=== PATIENT | female | born 1990 | race Hispanic/Latino ===

== ENCOUNTER 2021-10-13 00:17 | Day surgery (SDC) | payer OTHER, SELFPAY ==
[2021-10-13] VITALS (19 sets, daily range): BP systolic 102–124; BP diastolic 49–75; PULSE 77–106; RESP 16–22; TEMP 35.5–36.8; O2SAT 96–100; BMI 32.1
--- NOTE | ~2021-10-13 | CT_ITS ---
EXAMINATION: CT abdomen pelvis w con DATE: 10/13/2021 01:20 INDICATION: TECHNIQUE: Computed tomography (CT) of the abdomen and pelvis was performed with 100 cc Omnipaque 350 intravenous contrast. The dose-length product was 858.28 mGy-cm. Automated exposure control and iter ative reconstruction technique were employed. COMPARISON: None. FINDINGS: Lung bases unremarkable. No significant pleural or pericardial effusion. Heart size normal. The liver, spleen, pancreas, adrenal glands and kidneys are unremarkable. Small fat-containing umbil ical hernia. There is a thickened enhancing appendix measuring up to 9 mm transversely with surroundi ng inflammation and small appendicoliths, consistent with acute uncomplicated appendicitis. No eviden ce for perforation or abscess. Small corpus luteal cyst of the left ovary measuring 2.2 cm. No free a ir or free fluid. The liver, spleen, pancreas, adrenal glands and kidneys are unremarkable. Gallbladder is present. IMPRESSION: 1. Acute uncomplicated appendicitis. Reviewed, dictated and finalized at location A.
--- NOTE | 2021-10-13 00:34 | ED.ABDPAIN ---
HPI - Abdominal Pain General Chief Complaint: Abdominal Pain Stated Complaint: right upper quadrant pain Time Seen by Provider: 10/13/21 00:26 Source: patient Mode of arrival: ambulatory Limitations: no limitations History of Present Illness HPI narrative: 30-year-old female presents today with complaints of 2 days of abdominal pain, nausea, vomiting, and diarrhea. Patient denies fevers but does endorse chills and sweats. Patient denies cough, runny nose, urinary symptoms. Patient history of what she calls surgery to not have babies about 2 years ago. Patient with 2 children at home that have had a cough and runny nose but not symptoms similar to her. Patient able to keep some food and fluids down. Related Data Allergies Allergy/AdvReac Type Severity Reaction Status Date / Time No Known Allergies Allergy Verified 10/13/21 00:25 Review of Systems Review of Systems: CONSTITUTIONAL: Denies fever, chills, or sweats. EYES: Denies visual changes, redness, or discharge. ENT: Denies rhinorrhea, congestion, sore throat, or otalgia. CARDIOVASCULAR: Denies chest pain, palpitations, or edema. RESPIRATORY: Denies cough or dyspnea. GASTROINTESTINAL: abdominal pain, nausea, vomiting, and diarrhea. GENITOURINARY: Denies dysuria or hematuria. SKIN: Denies rash or itching. MUSCULOSKELETAL: Denies back pain, joint pain, or myalgia. NEUROLOGIC: Denies headache, numbness, dizziness, or weakness. PSYCHIATRIC: Denies anxiety or depression. Exam Narrative: GENERAL: Well-appearing, well-nourished, and in no acute distress. HEAD: Normocephalic, atraumatic. EYES: PERRLA and EOMI. ENT: Nares clear, no rhinorrhea or epistaxis. Mucous membranes moist. Oropharynx without tonsillar hypertrophy exudate or other lesions. Bilateral TMs pearly herbert nonbulging NECK: Supple. No adenopathy or masses. No carotid bruits or JVD CHEST: Clear to auscultation. No respiratory distress. No wheezes rales or rhonchi HEART: Tachycardic. No murmur heard. Normal peripheral pulses. ABDOMEN: Generalized tenderness. Soft, nondistended, normal active bowel sounds. EXTREMITIES: Normal range of motion. No edema. SKIN: Warm, dry, no rash. NEURO: No focal deficits. Alert and oriented x3. PSYCH: Normal mood and affect. Course Consultations Consultation #1: Dr. Austin consulted. In agreement with admission. Will be admitting physician to [facility] as observation for acute appendicitis. Date: 10/13/21 Time: 02:10 Vital Signs Vital signs: Vital Signs Temperature 36.3 C L 10/13/21 00:19 Pulse Rate 106 H 10/13/21 00:19 Respiratory Rate 16 10/13/21 00:19 Blood Pressure 116/70 10/13/21 00:19 Pulse Oximetry 100 10/13/21 00:19 Temperature 36.3 C L 10/13/21 00:19 Pulse Rate 106 H 10/13/21 00:19 Respiratory Rate 16 10/13/21 00:19 Blood Pressure 116/70 10/13/21 00:19 Pulse Oximetry 100 10/13/21 00:19 MDM - Abdominal Pain Differential Diagnosis Differential diagnosis: Likely abdominal pain, acute appendicitis, constipation, diverticulitis, gastroenteritis and small bowel obstruction Medical Records Attestation: I reviewed the patient's medical records. Lab Data Attestation: I reviewed the patient's lab results. Result diagrams: 10/13/21 00:34 10/13/21 00:34 Labs: Lab Results 10/13/21 10/13/21 10/13/21 Range/Units 00:34 00:34 00:38 WBC 14.6 H (4.5-10.0) K/mm3 RBC 4.90 (4.2-5.4) M/mm3 Hgb 13.9 (12.0-15.0) g/dL Hct 41.8 (37.0-47.0) % MCV 85.3 (80-100) fl MCH 28.4 (26-34) pg MCHC 33.3 (32-36) g/dl RDW 13.0 (11.5-14.5) % Plt Count 283 (150-375) k/mm3 MPV 9.7 (7.4-10.4) fl Immature Gran % (Auto) 0.4 (0-0.5) % Neut % (Auto) 73.1 (45.5-73.1) % Lymph % (Auto) 20.0 (18.3-44.2) % [place] % (Auto) 5.9 (2.6-8.5) % Eos % (Auto) 0.3 (0-4.4) % Baso % (Auto) 0.3 (0.2-1.2) % Lymph # (Auto) 2.91 (0.9-3.2) K/mm3 [place] # (Auto) 0.9 H (0.1
[2021-10-13] MEDS: SODIUM CHLORIDE 0.9% IV 1,000 ML 999 ML IV CONT (00:38)
[2021-10-13 00:43] LABS: Basophils Percent Auto 0.3 % (0.2-1.2); Eosinophils Percent Auto 0.3 % (0-4.4); Hematocrit 41.8 % (37.0-47.0); Hemoglobin 13.9 g/dL (12.0-15.0); Immature Granulocyte Absolute 0.06 K/mm3 (0.00-0.031); Immature Granulocyte Percent A 0.4 % (0-0.5); Lymphocytes Absolute Auto 2.91 K/mm3 (0.9-3.2); Mean Corpuscular HGB Conc 33.3 g/dl (32-36); Mean Corpuscular Hemoglobin 28.4 pg (26-34); Mean Corpuscular Volume 85.3 fl (80-100); Mean Platelet Volume 9.7 fl (7.4-10.4); Monocytes Absolute Auto 0.9 K/mm3 (0.1-0.6); Monocytes Percent Auto 5.9 % (2.6-8.5); Neutrophils Absolute Auto 10.6 K/mm3 (1.3-6.7); Neutrophils Percent Auto 73.1 % (45.5-73.1); Platelet Count Result 283 k/mm3 (150-375); White Blood Count 14.6 K/mm3 (4.5-10.0)
[2021-10-13 00:46] LABS: Add Urine Microscopic? YES; Appearance Urine Clear (Clear); Bacteria Urine Trace /hpf; Bilirubin Urine Negative (Negative); Blood Urine Negative (Negative); Color Urine Yellow (Yellow); Glucose Urine UA Negative (Negative); Ketones Urine Negative (Negative); Leukocyte Esterase Ur Trace LEU/UL (Negative); Mucus Urine Rare /lpf; Nitrate Urine Negative (Negative); Protein Urine Negative (Negative); RBC Urine 0-2 /hpf (0-2); Specific Grav Ur 1.013 (1.001-1.035); Squamous Epithelial Cell Urine Rare /hpf (Few); Urobilinogen Urine Negative mg/dL (<2.0)
[2021-10-13 00:53] LABS: Alanine Aminotransferase 26 U/L (4-35); Albumin Level 4.7 g/dL (3.5-5.1); Alkaline Phosphatase 60 U/L (38-126); Anion Gap 12 mmol/L (8-16); Aspartate Amino Transferase 29 U/L (14-36); Bilirubin,Total 1.3 mg/dL (0.2-1.3); Blood Urea Nitrogen 10 mg/dL (7-17); Calcium 9.7 mg/dL (8.4-10.2); Carbon Dioxide 24 mmol/L (22-30); Chloride 101 mmol/L (98-107); Estimated CRCL calculation 129 ml/min; Estimated Glomerular Filt Rate > 60; Glucose 151 mg/dL (65-110); Lipase 63 U/L (23-300); Potassium 3.7 mmol/L (3.4-5.0); Sodium 137 mmol/L (137-145)
[2021-10-13] MEDS: SODIUM CHLORIDE 0.9% IV 1,000 ML 150 ML IV CONT (02:01)
[2021-10-13] MEDS: MORPHINE SULFATE (*CRX) 2 MG/ML INJ IV PUSH (02:01)
[2021-10-13] MEDS: FAMOTIDINE 20 MG/2 ML VIAL IV PUSH (02:52)
[2021-10-13] MEDS: methylPREDNISolone SOD SUCC 125 MG VIAL IV PUSH (02:52)
[2021-10-13] MEDS: diphenhydrAMINE HCl INJ 50 MG/ML VIAL 25 MG IV PUSH (02:52)
--- NOTE | 2021-10-13 02:55 | PC.NURSE ---
Pt reports throat feeling tight, right eye swelling - per provider, pt is having an allergic reaction to Zosyn which has already infused. Medications ordered for reaction given IVP and allergy placed in record. Pt denies previous reaction or allergy to any medication. Pt on tele monitor w/ VSS. Given call light for any increasing distress or new symptoms.
[2021-10-13] MEDS: metroNIDAZOLE 500 MG/ISO 100ML 500 MG/100 ML BAG 100 MG IVPB ×2 (03:23→08:46)
--- NOTE | 2021-10-13 04:06 | ADMGEN ---
This patient, Vero Sharif, was admitted to [facility] Surg Room 327-01. Patient/family oriented to hospital policies and general routines including ID bracelet, bed and alarms, visiting hours, pain management, procedures, bathroom and other care routines, personal items, smoking policy, room service/diet, and visiting hours. Information on how to activate the Rapid Response Team has been discussed. Patient/Family are encouraged to report perceived risks to care and to ask questions if they do not understand what they are told or what they should do.
--- NOTE | 2021-10-13 07:20 | PM.IMHP ---
H&P: HPI History of Present Illness Date/Time: 10/13/21 07:20 this is a pleasant 30-year-old [place] female presented early today with complaints of 2 days of abdominal pain, nausea, vomiting, and diarrhea. Patient denies fevers but does endorse chills and sweats. Patient denies cough, runny nose, urinary symptoms. Patient has a history of what she calls surgery to not have babies about 2 years ago. ( ( there are tubal ligation clips in the pelvis on the CT scan consistent with this) Patient with 2 children at home that have had a cough and runny nose but not symptoms similar to her. Patient able to keep some food and fluids down. workup in the emergency room revealed somewhat elevated white count. She has some tenderness in the right lower quadrant on exam and a CT scan of the abdomen pelvis revealed a swollen appendix with surrounding inflammatory change in the fat no signs of perforation or abscess. Therefore, I have provided her with information regarding appendectomy and also treatment with antibiotics. Please see plan below. Chief Complaint: Right lower quadrant abdominal pain. Review of Systems Constitutional: Constitutional: Reports no additional constitutional complaints, Reports fatigue and Denies malaise Eyes: Eyes: Denies change in vision and Denies loss of vision ENT: Reports Normal hearing present, Denies change in voice, Denies dizziness, Denies hoarseness and Denies sore throat Cardiovascular: Cardiovascular: Denies chest pain, Denies leg edema and Denies dyspnea Comments: During her 1st when she was 15 years old someone out a small clinic in [place] told her that she may have a irregular heartbeat or a murmur. (I thought I heard 1 so doing an EKG prior to surgery. ) Respiratory: Respiratory: Denies cough, Denies dyspnea and Denies wheezing Gastrointestinal: Gastrointestinal: Denies hematochezia, Denies change in bowel habits and Denies heartburn Genitourinary: Genitourinary: Denies urinary frequency and Denies urinary incontinence Neurologic: Reports Normal hearing present, Denies confusion, Denies dizziness, Denies loss of vision, Denies memory loss and Denies seizure-like activity Psychiatric: Psychiatric: Denies confusion, Denies depression and Denies memory loss Endocrine: Endocrine: Denies cold intolerance and Reports fatigue Hematologic/Lymphatic: Hematologic/Lymphatic: Denies easy bleeding and Denies easy bruising Allergic/Immunologic: Allergic/Immunologic: Denies wheezing PMFSH Past Medical History Medical History (Updated 10/13/21 @ 10:46 by Wero Austin MD) Class 1 obesity without serious comorbidity with body mass index (BMI) of 32.0 to 32.9 in adult Premature ventricular contractions (PVCs) (VPCs) Surgical History Surgical History H/O tubal ligation Social History Social History Smoking status: Never smoker Alcohol intake: never Substance use: never Spiritual care concerns: No Meds Home Medications and Allergies Allergies Allergy/AdvReac Type Severity Reaction Status Date / Time Penicillins Allergy Severe facial Verified 10/13/21 02:45 edema, sob piperacillin [From Zosyn] Allergy Mild Swelling Verified 10/13/21 04:05 of Lip/Tongue/Throat tazobactam [From Zosyn] Allergy Mild Swelling Verified 10/13/21 04:05 of Lip/Tongue/Throat Vital Signs Vital Signs - 24 hr 10/13/21 00:19 10/13/21 02:17 10/13/21 02:57 Temperature 36.3 C L Pulse Rate 106 H 93 82 Respiratory Rate 16 18 17 Blood Pressure 116/70 111/67 109/64 Pulse Oximetry 100 99 99 10/13/21 04:07 10/13/21 04:33 Temperature 36.4 C L Pulse Rate 81 84 Respiratory Rate 22 H 18 Blood Pressure 102/61 111/61 Pulse Oximetry 100 100 Exam Const: General: cooperative, healthy appearing, comfortable, no acute distress, well developed, alert
--- NOTE | 2021-10-13 08:34 | ECG_ITS ---
Measurements Intervals [place] Rate: 87 P: 57 IL: 172 QRS: 112 QRSD: 120 T: 21 QT: 382 QTc: 460 Interpretive Statements SINUS RHYTHM WITH FREQUENT VENTRICULAR PREMATURE COMPLEXES RIGHT BUNDLE BRANCH BLOCK [120+ ms QRS DURATION, UPRIGHT V1, 40+ ms S IN I/aVL/V4/V5/V6] LEFT POSTERIOR FASCICULAR BLOCK [QRS AXIS > 109, INFERIOR Q] ABNORMAL ECG NO PREVIOUS ECG AVAILABLE FOR COMPARISON Electronically Signed On 10-13-2021 14:06:12 CDT by Bulmaro Walker M.D.
--- NOTE | 2021-10-13 12:31 | WPDHPUPDATE1 ---
History and Physical Update Update Date/Time: 10/13/21 12:31 History and Physical has been reviewed, including an updated exam of the patient. There are NO changes in the patient's condition. Risks, benefits, and alternatives have been discussed and questions answered. Patient agrees to proceed with procedure.
--- NOTE | 2021-10-13 12:50 | PC.NURSE ---
To OR via STRETCHER.
[2021-10-13] MEDS: LACTATED RINGERS 1,000 ML 30 ML IV CONT ×2 (13:00→15:28)
--- NOTE | 2021-10-13 13:45 | WPDANESEPPF ---
Anes - Initial Pre Proc Eval Procedure: Operation Date: 10/13/21 14:00 Proposed Procedures p Laparoscopic Appendectomy - Wero Austin MD Date/Time: 10/13/21 13:45 Surgeon: Wero Austin MD Pre Op Diagnosis: Acute Appendicitis Patient Data Age: 30 Gender: F Height: 1.68 m Weight: 90.4 kg Last Vital Signs Temp 36.0 C L 10/13/21 12:59 Pulse 99 10/13/21 12:59 Resp 18 10/13/21 12:59 BP 124/64 10/13/21 12:59 Pulse Ox 100 10/13/21 12:59 Allergies Allergy/AdvReac Type Severity Reaction Status Date / Time Penicillins Allergy Severe facial Verified 10/13/21 02:45 edema, sob piperacillin [From Zosyn] Allergy Mild Swelling Verified 10/13/21 04:05 of Lip/Tongue/Throat tazobactam [From Zosyn] Allergy Mild Swelling Verified 10/13/21 04:05 of Lip/Tongue/Throat Laboratory Tests 10/13/21 10/13/21 10/13/21 00:34 00:34 00:38 WBC 14.6 K/mm3 H K/mm3 (4.5-10.0) RBC 4.90 M/mm3 M/mm3 (4.2-5.4) Hgb 13.9 g/dL g/dL (12.0-15.0) Hct 41.8 % % (37.0-47.0) MCV 85.3 fl fl (80-100) MCH 28.4 pg pg (26-34) MCHC 33.3 g/dl g/dl (32-36) RDW 13.0 % % (11.5-14.5) Plt Count 283 k/mm3 k/mm3 (150-375) MPV 9.7 fl fl (7.4-10.4) Immature Gran % (Auto) 0.4 % % (0-0.5) Neut % (Auto) 73.1 % % (45.5-73.1) Lymph % (Auto) 20.0 % % (18.3-44.2) [place] % (Auto) 5.9 % % (2.6-8.5) Eos % (Auto) 0.3 % % (0-4.4) Baso % (Auto) 0.3 % % (0.2-1.2) Lymph # (Auto) 2.91 K/mm3 K/mm3 (0.9-3.2) [place] # (Auto) 0.9 K/mm3 H K/mm3 (0.1-0.6) Eos # (Auto) 0.0 K/mm3 K/mm3 (0-0.3) Baso # (Auto) 0.0 K/mm3 K/mm3 (0.0-0.1) Abs Immat Gran (auto) 0.06 K/mm3 H K/mm3 (0.00-0.031) Absolute Neuts (auto) 10.6 K/mm3 H K/mm3 (1.3-6.7) Absolute Nucleated RBC 0.0 K/mm3 K/mm3 (0.0-0.012) Nucleated RBC % 0.0 % % (0.0-0.2) Sodium 137 mmol/L mmol/L (137-145) Potassium 3.7 mmol/L mmol/L (3.4-5.0) Chloride 101 mmol/L mmol/L (98-107) Carbon Dioxide 24 mmol/L mmol/L (22-30) Anion Gap 12 mmol/L mmol/L (8-16) BUN 10 mg/dL mg/dL (7-17) Creatinine 0.60 mg/dL L mg/dL (0.7-1.0) Estim Creat Clear Calc 129 ml/min ml/min Estimated GFR > 60 (59 - ) Glucose 151 mg/dL H mg/dL (65-110) Calcium 9.7 mg/dL mg/dL (8.4-10.2) Total Bilirubin 1.3 mg/dL mg/dL (0.2-1.3) AST 29 U/L U/L (14-36) ALT 26 U/L U/L (4-35) Alkaline Phosphatase 60 U/L U/L (38-126) Total Protein 8.0 g/dL g/dL (6.3-8.2) Albumin 4.7 g/dL g/dL (3.5-5.1) Lipase 63 U/L U/L (23-300) Urine Color Yellow (Yellow) Urine Appearance Clear (Clear) Urine pH 5.0 (5.0-9.0) Ur Specific [place] 1.013 (1.001-1.035) Urine Protein Negative mg/dL mg/dL (Negative) Urine Glucose (UA) Negative mg/dL mg/dL (Negative) Urine Ketones Negative mg/dL mg/dL (Negative) Ur Blood (Man) Negative (Negative) Urine Nitrate Negative (Negative) Urine Bilirubin Negative (Negative) Urine Urobilinogen Negative mg/dL mg/dL (<2.0) Leukocyte Esterase Rfl Trace JULIO/UL H JULIO/UL (Negative) Urine RBC 0-2 /hpf /hpf (0-2) Urine WBC 4-6 /hpf H /hpf Ur Squamous Epith Cells Rare /hpf /hpf (Few) Urine Bacteria Trace /hpf /hpf Urine Mucus Rare /lpf /lpf Patient hx anesthesia problems: none Family hx anesthesia problems: none Results Review: All pre-operative results and documents have been reviewed as part of the pre-operative evaluation. PMF Past Medical
[2021-10-13] MEDS: KETOROLAC 30 MG/ML VIAL (*BKC) IV PUSH (15:03)
--- NOTE | 2021-10-13 15:32 | W.PM.PROC2 ---
Procedure Note - Detailed Date of Procedure 10/13/21 Pre-op Diagnosis 1. Acute uncomplicated Appendicitis 2. Small umbilical hernia Post-op Diagnosis Same Procedure Performed laparoscopic appendectomy Surgeon Wero Austin MD Resource Specialist Teacher Juan Manuel ROSA. OR [employer]orter Anesthesia General Indications Patient presented with abdominal pain with a CT scan showing acute uncomplicated appendicitis with hermilo appendiceal stranding. She had elevated white count. Findings Appendix was slightly swollen but no signs of perforation. There was 1 of the tubal clips hanging just by a small scar tissue which was grasped and removed at the same time as the appendix. There were still several tubal clips in place. Description of Procedure The patient was seen in the her hospital Room. The risks, benefits, complications, treatment options, and expected outcomes were discussed with the patient and/or family. The possibilities of reaction to medication, pulmonary aspiration, perforation of viscus, bleeding, recurrent infection, finding a normal appendix, the need for additional procedures, failure to diagnose a condition, and creating a complication requiring transfusion or operation were discussed. There was concurrence with the proposed plan and informed consent was obtained. The site of surgery was properly noted/marked. The patient was taken to Operating Room, and a time out was preformed which identified this as the proper patient, and the procedure verified as laparoscopic appendectomy, possible open. The patient was placed in the supine position and general anesthesia was induced, along with placement of an orogastric tube, SCD hose, and a Cavanaugh catheter. The abdomen was prepped and draped in a sterile fashion. Because the patient had had previous surgeries the Garrido cannula technique was utilized. To do this I made an incision Transversely in the umbilical area and carried this down to the midline fascia. I found what appeared to be a small umbilical hernia probably related to her previous port placement for her tubal ligation. There was omental fat coming up through this. I removed this and carefully dissected completely around it there was no bowel seen and fairly good fascia was seen on either side of it. Under direct vision the peritoneum entered after placing 2 sutures of 0 Vicryl in the fascia on either side of midline fascial defect. The Garrido cannula was then slid into place into the peritoneum under direct vision. The pneumoperitoneum was then established to steady pressure of 15 mm Hg. A 12 mm laparoscopic port was placed through a transverse suprapubic incision. An additional 5 mm cannula was then placed in the left lower quadrant of the abdomen at a level half way between the umbilicus and pubic symphysis under direct vision. A careful evaluation of the entire abdomen was carried out. The patient was placed in Trendelenburg and left lateral decubitus position. The small intestines were retracted in the cephalad and left lateral direction away from the pelvis and right lower quadrant. The patient was found to have an enlarged and inflamed appendix that was curled into the right side of the abdomen at about the level of the pelvic brim. There was no evidence of perforation. The appendix was carefully dissected. Once it was free a 45 mm ethicon endogastroentestinal stapler with a vascular load was placed across the mesoappendix. This was fired and hemostasis was checked along the staple line and appeared to be adequate. For this patient, this divided the entire mesoappendix and we were able to proceed immediately to stapling off the appendix at it's junction with the cecum. The appendix was then divided at its base using the same 45 mm stapler with a 3.5 mm bowel wall load. Minimal appendiceal stump was left in place. There was no evidence of bleeding, leakage, or complication after division of the appendix at its junction with the cecum.. The appendi
--- NOTE | 2021-10-13 15:55 | SUR.PHASEI ---
Simple mask removed at 1555.
--- NOTE | 2021-10-13 16:35 | PC.NURSE ---
Back from OR via stretcher.
[2021-10-13] MEDS: SENNA/DOCUSATE SODIUM TABLET 2 TAB PO (21:09)
[2021-10-14 04:00] VITALS: BP 104/45; PULSE 79; RESP 18; TEMP 36.3; O2SAT 100
[2021-10-14 06:21] LABS: Hematocrit 33.5 % (37.0-47.0); Hemoglobin 11.4 g/dL (12.0-15.0); Mean Corpuscular Hemoglobin 28.6 pg (26-34); Mean Corpuscular Volume 84.2 fl (80-100); Mean Platelet Volume 9.8 fl (7.4-10.4); Platelet Count Result 222 k/mm3 (150-375); Red Blood Count 3.98 M/mm3 (4.2-5.4); Red Cell Distribution Width 13.2 % (11.5-14.5); White Blood Count 11.9 K/mm3 (4.5-10.0)
--- NOTE | 2021-10-14 08:04 | PM.DS ---
DS: Admitting Diagnosis Discharge Date 10/14/2021 Admitting Diagnosis acute uncomplicated appendicitis DS: Discharge Diagnosis Discharge Diagnosis (1) Acute appendicitis, uncomplicated: Onset Date: ~10/11/21 Code(s): K35.80 - Unspecified acute appendicitis Status: Acute Assessment and Plan: This was the main reason for the patient's admission. Review of her CT scan revealed that she did have appendicoliths in the appendix. She also had a reaction to Zosyn in the ED with throat swelling and shortness of breath therefore this limited some of the antibiotics that could be used. Therefore the patient and I together made a decision to proceed to surgical intervention so that the longer term antibiotics would not be needed. Her pannus was not perforated therefore antibiotics were stopped after the perioperative doses. She did well overnight and is doing well postop day 1. She is tolerating liquids and ready to start a low-fat diet. She will follow-up with me in 2 weeks in the office. Incisions are doing well. (2) Premature ventricular contractions (PVCs) (VPCs): Onset Date: Unknown Code(s): I49.3 - Ventricular premature depolarization Status: Acute Assessment and Plan: These were noted on physical exam. EKG was done preoperatively. It showed PVCs that were not concerning anesthesia and she had no cardiac issues through the anesthesia for her appendectomy. Therefore reassured her that no further workup would be needed at this time but she should probably get a primary care physician to be connected into the health system. I encouraged her to do this and care coordination provided her with information. (3) Umbilical hernia without obstruction and without gangrene: Onset Date: Unknown Code(s): K42.9 - Umbilical hernia without obstruction or gangrene Status: Acute Assessment and Plan: Most likely this was a result of her previous tubal ligation many years ago as it was directly underlying the scar in her umbilicus from the previous surgery. I basically went through this to place 1 of the ports for her laparoscopic appendectomy. It was less than 12 mm in size because we had some difficulty keeping our [address] at the umbilicus. I then placed 3 sutures to repair this as we finished the surgery so this should be repaired for the future especially if she is able to lose weight. (4) Class 1 obesity without serious comorbidity with body mass index (BMI) of 32.0 to 32.9 in adult: Onset Date: Unknown Code(s): E66.9 - Obesity, unspecified; Z68.32 - Body mass index [BMI] 32.0-32.9, adult Status: Acute Assessment and Plan: Encouraged patient to alter her diet to a low-fat diet and lose weight. DS: Summary Hospital Course Hospital Course: This was the main reason for the patient's admission. Review of her CT scan revealed that she did have appendicoliths in the appendix. She also had a reaction to Zosyn in the ED with throat swelling and shortness of breath therefore this limited some of the antibiotics that could be used. Therefore the patient and I together made a decision to proceed to surgical intervention so that the longer term antibiotics would not be needed. Her pannus was not perforated therefore antibiotics were stopped after the perioperative doses. She did well overnight and is doing well postop day 1. She is tolerating liquids and ready to start a low-fat diet. She will follow-up with me in 2 weeks in the office. Incisions are doing well. Status at Discharge Cognitive/behavioral status at discharge: Normal Functional status at discharge: independent ambulation Overall status at discharge: patient is not back to baseline Time Spent with Patient Time attestation: Total time spent providing and/or coordinating discharge services: Time spent: Less than 30 minutes Specific discharge activities: 1. Encourage patient to follow
[2021-10-14 08:28] VITALS: O2SAT 99
[2021-10-14] MEDS: ENOXAPARIN 40 MG/0.4 ML SYRINGE SUB-Q (08:56)
[2021-10-14 10:10] VITALS: BP 112/60; PULSE 79; RESP 18; TEMP 36.1; O2SAT 100
== END 2021-10-14 12:50 | disposition home or self-care (01) ==
LOC: ANHED 02:11 → ANH3MEDSUR 07:18 → ANHOUTPT 10-15 08:53 → ANH3MEDSUR 10-15 08:53
PROVIDERS: Emergency Provider Nurse Practitioner Family; Visit Provider Surgery
PROC: 0DTJ4ZZ Resection of Appendix, Percutaneous Endoscopic Approach (ICD-10-PCS; CPT 44970; principal; 2021-10-13 14:00)
DX: K35.30 Acute appendicitis with localized peritonitis, without perforation or gangrene (principal); R06.02 Shortness of breath; R22.1 Localized swelling, mass and lump, neck; T36.0X5A Adverse effect of penicillins, initial encounter; T83.428A Displacement of other prosthetic devices, implants and grafts of genital tract, initial encounter; Y83.8 Other surgical procedures as the cause of abnormal reaction of the patient, or of later complication, without mention of misadventure at the time of the procedure; K42.9 Umbilical hernia without obstruction or gangrene; Z98.51 Tubal ligation status; I49.3 Ventricular premature depolarization; E66.9 Obesity, unspecified; Z68.32 Body mass index [BMI] 32.0-32.9, adult
CPT/HCPCS: 44970; 36415; 74177; 80053; 81001; 81025; 83690; 85025; 85027; 88300; 88302; 88304; 93005; 96361; 96365; 96366; 96367; 96375; 99285; A9270; J0330; J1100; J1200; J1650; J1885; J1956; J2250; J2270; J2405; J2543; J2704; J2710; J2930; J7030; J7120; Q9967

== ENCOUNTER 2022-09-28 15:30 | Outpatient (RCR) | payer OTHER, SELFPAY ==
--- NOTE | 2022-08-08 16:19 | PTOPEVAL1 ---
Assessment and note entered by Phu Lane, PT Evaluation Information Diagnosis R elbow and shoulder pain Onset 6 months ago for elbow. Subjective Information Vero, reports that the R elbow has been bothering her for 6 months. Main aggravating factors are after working with her putting in evelyn or doing chores around the house such as picking up pots of water. The pain will wake her up a couple of times a week when she lies on the R side while asleep. The R elbow will also cause radiating pain down to her fingers along with numbness. The R shoulder pain is not as bad and seems to be from compensating fot the R elbow. Reported Pain Level Pain Score 4,2: Self Report Assessment PT Clinical Summary Vero is a 31 year old female coming into the clinic with R elbow and R shoulder pain. She has tenderness over the R bicipital groove and over the lateral epicondyle. Patient has discomfort with resisted external rotation, wrist extension, and pronation. Patient should benefit from education on posture, stretches and strengthening exercises for the R arm and modalities as needed for pain. Plan of Care Interventions Electrical Stimulation,Hot Pack/Cold Pack,Manual Therapy,Neuro Re-education,Patient/Caregiver Education,Therapeutic Activities,Therapeutic Exercise,Ultrasound PT Services Indicated Yes Treatment Frequency and 1-2x/wk for 4 weeks Duration These treatments will address the objective and functional deficits as defined above. The patient will be advanced safely and appropriately in order for the patient to progress towards his/her prior level of function. Additional exercises will be introduced and as well as a comprehensive home exercise program upon discharge, if needed, ?to ensure carryover of functional gains achieved in the clinic. This treatment plan has been reviewed and agreement upon by the patient.
--- NOTE | 2022-08-22 14:25 | PCPTNOTE ---
Patient called & cancelled scheduled appointment this date due to inclement weather.
--- NOTE | 2022-08-26 16:23 | PCPTNOTE ---
Pt no showed for her appt today. Called pt and pt stated she forgot. Reminded pt of day and time of her next appt.
--- NOTE | 2022-09-12 16:10 | PCPTNOTE ---
Patient called & cancelled scheduled appointment this date due to being sick.
--- NOTE | 2022-09-15 14:43 | PCPTNOTE ---
Patient called & cancelled scheduled appointment this date due to not feeling well
--- NOTE | 2022-09-28 16:03 | PCPTNOTE ---
Called MD office about getting OT order for R elbow pain.
--- NOTE | 2022-09-28 16:13 | PTOPDC ---
Assessment and note entered by Phu Lane, PT Evaluation Information Assessment Status Discharge Diagnosis R elbow and shoulder pain Onset 6 months ago for elbow. Subjective Information Patient reports the shoulder pain is gone, but she still has the R elbow pain especially after any manual labor, such as cutting down a tree in her yard she did earlier this week. Reports the pain goes along the muslce belly down into the wrist. Reported Pain Level Pain Score 0,5: Self Report Assessment PT Clinical Summary Vero is a 31 year old female coming in for R shoulder and elbow pain. Shoulder pain has been resolved, but still having issues with the elbow. Physical therapist believes at this time it would be hendrickson to discharge from physical therapy and have occupational therapy look over the elbow issues with a new order. MD office was called and note was left for provider to either send a new script or call back for reason not wanting to do occupational therapy. Plan of Care PT Services Indicated No Treatment Frequency and discharged from skilled physical therapy. Duration
== END 2022-10-24 11:08 | disposition home or self-care (01) ==
LOC: ANHPT 15:30
PROVIDERS: Visit Provider Physician Assistant
DX: M77.11 Lateral epicondylitis, right elbow (principal)
CPT/HCPCS: 97110; 97140; 97161

== ENCOUNTER 2022-12-15 14:10 | Outpatient (CLI) | payer OTHER, SELFPAY ==
--- NOTE | ~2022-12-15 | MR_ITS ---
EXAMINATION: MR brain/brain stem wo con DATE: 12/15/2022 14:53 INDICATION: Migraine headache. TECHNIQUE: Magnetic resonance imaging (MRI) of the brain and brainstem was performed without intraven ous contrast. COMPARISON: None. FINDINGS: There is no intracranial hemorrhage, acute infarction, or abnormal intracranial mass lesion . The ventricles are normal in size. The paranasal sinuses are clear. The orbits are normal. The mast oid air cells are normal. 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 IMPRESSION: 1. Normal brain. Reviewed, dictated and finalized at location E. IMPRESSION: 1. Normal brain.
== END 2022-12-15 14:11 | disposition home or self-care (01) ==
PROVIDERS: PCP Physician Assistant; Visit Provider Physician Assistant
DX: G43.101 Migraine with aura, not intractable, with status migrainosus (principal)
CPT/HCPCS: 70551

== ENCOUNTER 2024-05-04 21:38 | Emergency (ER) | payer SELFPAY ==
[2024-05-04] VITALS (13 sets, daily range): BP systolic 100–120; BP diastolic 65–89; PULSE 70–90; RESP 12–20; TEMP 36.5; O2SAT 100
--- NOTE | ~2024-05-04 | CT_ITS ---
EXAMINATION: CT abdomen pelvis w con DATE: 05/04/2024 22:57 INDICATION: Upper abdominal pain. Nausea and vomiting. Abnormal liver function tests. TECHNIQUE: Computed tomography (CT) of the abdomen and pelvis was performed with 100 mL Omnipaque 350 intravenous contrast. Automated exposure control and iterative reconstruction technique were employe d. The dose-length product was 1140.07 mGy-cm. COMPARISON: CT abdomen and pelvis 10/13/2021 FINDINGS: The visualized portions of the lung bases demonstrate mild atelectasis. No pleural effusion . The heart size is normal. No pericardial effusion. The liver and spleen are normal. The gallbladder is distended. The pancreas, adrenal glands, and kidneys are normal. There are bilateral tubal ligati on clips. The right-sided clip is dislodged. There are no dilated loops of bowel. There are changes o f appendectomy. There are no pathologically enlarged lymph nodes. There is no free intraperitoneal fl uid. There is mild thoracic spondylosis. IMPRESSION: 1. Gallbladder distention, which may be secondary to fasting. Correlate with physical exam to exclude acute cholecystitis. Reviewed, dictated and finalized at location A. IMPRESSION: 1. Gallbladder distention, which may be secondary to fasting. Correlate with ph ysical exam to exclude acute cholecystitis.
[2024-05-04 21:53] LABS: Basophils Absolute Auto 0.1 K/mm3 (0.0-0.1); Basophils Percent Auto 0.5 % (0.2-1.2); Eosinophils Absolute Auto 0.1 K/mm3 (0-0.3); Eosinophils Percent Auto 0.4 % (0-4.4); Hematocrit 39.6 % (37.0-47.0); Hemoglobin 13.6 g/dL (12.0-15.0); Immature Granulocyte Absolute 0.04 K/mm3 (0.00-0.031); Immature Granulocyte Percent A 0.3 % (0-0.5); Lymphocytes Absolute Auto 2.56 K/mm3 (0.9-3.2); Lymphocytes Percent Auto 20.8 % (18.3-44.2); Mean Corpuscular HGB Conc 34.3 g/dl (32-36); Mean Corpuscular Hemoglobin 29.4 pg (26-34); Mean Corpuscular Volume 85.7 fl (80-100); Mean Platelet Volume 9.5 fl (7.4-10.4); Monocytes Absolute Auto 0.6 K/mm3 (0.1-0.6); Monocytes Percent Auto 4.8 % (2.6-8.5); Neutrophils Percent Auto 73.2 % (45.5-73.1); Platelet Count Result 259 k/mm3 (150-375); Red Blood Count 4.62 M/mm3 (4.2-5.4); Red Cell Distribution Width 12.5 % (11.5-14.5); White Blood Count 12.3 K/mm3 (4.5-10.0)
--- NOTE | 2024-05-04 21:53 | ECG_ITS ---
Test Date: 2024-05-04 22:02:37 Measurements Intervals [place] Rate: 87 P: 59 DE: 162 QRS: 112 QRSD: 106 T: 57 QT: 367 QTc: 443 Interpretive Statements SINUS RHYTHM INCOMPLETE RIGHT BUNDLE BRANCH BLOCK [90+ ms QRS DURATION, TERMINAL R IN V1/V2, 40+ ms S IN I/aVL/V4/V5/V6] POSSIBLE RIGHT VENTRICULAR HYPERTROPHY [SOME/ALL OF: PROMINENT R IN V1, LATE TRANSITION, RAD, YUKO, SSS] No previous ECG available for comparison Electronically Signed On 05-04-2024 22:07:12 CDT by Kev Mustafa M.D.
--- NOTE | 2024-05-04 21:53 | ED.ABDPAIN ---
HPI - Abdominal Pain General Chief Complaint: Abdominal Pain Stated Complaint: abd pain Time Seen by Provider: 05/04/24 21:45 Source: patient and family Mode of arrival: ambulatory Limitations: no limitations History of Present Illness HPI narrative: Patient is a 33-year-old female who presents the ED with report of upper abdominal pain. Patient is primarily [place] speaking. Family member at bedside commercial escrow assistant providing translation. [employer] information technology consultant was offered and declined. Patient reports having pain throughout her upper abdomen, radiating straight through to her back since around 6:00 p.m. tonight. States it feels like a band squeezing around her. She does note she had spicy food for lunch and the pain seemed to sort of begin after that. She tried taking a [place] medication for IBS, but denied improvement. Has not taken anything further for pain. Does report nausea, vomiting, mild shortness of breath. Denies issues with her bowels. Denies fevers. She does not history of similar pain in the past, states she was never given a diagnosis. Denies history of pancreatitis. She does still have a gallbladder. Related Data Allergies Allergy/AdvReac Type Severity Reaction Status Date / Time Penicillins Allergy Severe facial Verified 05/04/24 21:53 edema, sob piperacillin [From Zosyn] Allergy Mild Swelling Verified 05/04/24 21:53 of Lip/Tongue/Throat tazobactam [From Zosyn] Allergy Mild Swelling Verified 05/04/24 21:53 of Lip/Tongue/Throat Review of Systems Review of Systems: All systems reviewed & are unremarkable except as noted in HPI. All systems reviewed & are unremarkable except as noted in HPI and below PMFSH Past Medical History Medical History Class 1 obesity without serious comorbidity with body mass index (BMI) of 32.0 to 32.9 in adult (Unknown) Premature ventricular contractions (PVCs) (VPCs) (Unknown) Surgical History Surgical History H/O tubal ligation History of laparoscopic appendectomy Social History Social History Smoking status: Never smoker Alcohol intake: never Substance use: never Spiritual care concerns: No Exam Narrative: GENERAL: Mildly uncomfortable appearing, obese with BMI of 34.7, non-toxic, in no acute distress. HEAD: Normocephalic, atraumatic. RESPIRATORY: Airway patent, respirations nonlabored. Clear to auscultation bilaterally, no rales, rhonchi, wheezing. CARDIOVASCULAR: Regular rate and rhythm without murmurs, rubs, or gallops. ABDOMINAL: Soft, TTP in epigastric region and RUQ, no rebound, nondistended. Normoactive BS. MUSCULOSKELETAL: Moves all extremities. No gross deformities. SKIN: Warm, dry, normal color. NEURO: A&O X3. Speech clear. PSYCHIATRIC: Appropriate mood and affect. Normal interaction. Course Vital Signs Vital signs: Vital Signs Temperature 97.7 F 05/04/24 21:42 Pulse Rate 88 05/04/24 21:42 Respiratory Rate 16 05/04/24 21:42 Blood Pressure 100/76 05/04/24 21:42 Pulse Oximetry 100 05/04/24 21:42 Oxygen Delivery Room Air 05/04/24 21:42 Temperature 97.7 F 05/04/24 21:42 Pulse Rate 70 05/05/24 01:05 Respiratory Rate 19 05/05/24 01:05 Blood Pressure 128/79 05/05/24 00:02 Pulse Oximetry 100 05/05/24 01:05 Oxygen Delivery Room Air 05/04/24 21:42 MDM - Abdominal Pain MDM Narrative Medical decision making narrative: Patient presented to ED with epigastric and mid back pain that began around 6:00 p.m. today. Does note that she ate something spicy for lunch today. Vital signs are stable upon arrival. She is afebrile here. Cbc with white blood cell count of 12.3. Neutrophil predominance. CMP with total bili of 1.5, AST and ALT are moderately elevated. Alk-phos is normal. Lipase is normal. U
[2024-05-04 21:58] LABS: BEDSIDEPREGUCG Negative (Negative)
[2024-05-04] MEDS: SODIUM CHLORIDE 0.9% IV 1,000 ML 999 ML IV CONT (22:02)
[2024-05-04] MEDS: MORPHINE SULFATE (*CRX) 4 MG/ML INJ IV PUSH (22:02)
[2024-05-04] MEDS: ONDANSETRON INJ 4 MG/2 ML VIAL IV PUSH (22:02)
[2024-05-04 22:03] LABS: Alanine Aminotransferase 120 U/L (6-35); Albumin Level 4.6 g/dL (3.5-5.1); Alkaline Phosphatase 64 U/L (38-126); Anion Gap 12 mmol/L (4-12); Aspartate Amino Transferase 224 U/L (14-36); Bilirubin,Total 1.5 mg/dL (0.2-1.3); Blood Urea Nitrogen 17 mg/dL (7-17); Calcium 9.8 mg/dL (8.4-10.2); Carbon Dioxide 24 mmol/L (22-30); Chloride 101 mmol/L (98-107); Estimated CRCL calculation 102 ml/min; Estimated Glomerular Filt Rate > 60; Glucose 121 mg/dL (65-110); Lipase 145 U/L (23-300); Potassium 3.7 mmol/L (3.4-5.0); Sodium 137 mmol/L (137-145)
[2024-05-04 22:07] LABS: Add Urine Microscopic? YES; Appearance Urine Clear (Clear); Bacteria Urine None Seen /hpf; Bilirubin Urine Negative (Negative); Blood Urine Negative (Negative); Color Urine Yellow (Yellow); Glucose Urine UA Negative (Negative); Ketones Urine Negative (Negative); Leukocyte Esterase Ur Trace LEU/UL (Negative); Nitrate Urine Negative (Negative); Non Pathogenic Casts 0-2; Protein Urine Negative (Negative); Specific Grav Ur 1.021 (1.001-1.035); Squamous Epithelial Cell Urine None Seen /hpf (Few); WBC Urine 0-5 /hpf (0-3); pH Urine 7.5 (5.0-9.0)
[2024-05-04 22:13] LABS: INR 1.1; Prothrombin Time 14.6 Seconds (11.1-14.7)
[2024-05-04 22:14] LABS: Partial Thromboplastin Time 29.9 Seconds (22.3-36.8)
[2024-05-04 22:21] LABS: D Dimer 0.38 ug/mL (<0.48)
[2024-05-04 22:34] LABS: Troponin I < 0.012 ng/mL (0.000-0.034)
[2024-05-05] VITALS: PULSE 77; RESP 12; O2SAT 99
[2024-05-05 00:02] VITALS: BP 128/79; PULSE 77; RESP 16; O2SAT 100
[2024-05-05 00:15] VITALS: PULSE 72; RESP 17; O2SAT 100
[2024-05-05 01:05] VITALS: PULSE 70; RESP 19; O2SAT 100
[2024-05-05] MEDS: HYDROcodone/acetaminophen (*CRX) 5-325 MG TABLET 1 TAB PO (01:09)
[2024-05-05 01:26] VITALS: BP 114/77; PULSE 73; RESP 16; O2SAT 100
== END 2024-05-05 01:28 | disposition home or self-care (01) ==
PROVIDERS: Emergency Provider Physician Assistant; PCP Physician Assistant
DX: K80.70 Calculus of gallbladder and bile duct without cholecystitis without obstruction (principal); N83.202 Unspecified ovarian cyst, left side; E66.811 Obesity, class 1; Z68.34 Body mass index [BMI] 34.0-34.9, adult
CPT/HCPCS: 36415; 74177; 80053; 81001; 81025; 83690; 84484; 85025; 85380; 85610; 85730; 93005; 96361; 96374; 96375; 99284; A9270; J2270; J2405; J7030; Q9967